=== PATIENT | female | born 1960 | race Caucasian/White ===

== ENCOUNTER → 2019-06-23 | Outpatient (CLI) | payer OTHER ==
--- NOTE | 2019-06-23 17:25 | Diagnostic Imaging Report ---
CLINICAL INDICATION: Patient with chronic right hip pain. No known injury. EXAM: X-ray of the pelvis AP view and X-ray of the right hip, AP and frog-leg views. COMPARISON: None. FINDINGS: There is no acute fracture or dislocation. There is mild spurring of the right proximal femoral head/neck junction region. There is moderate narrowing of the femoroacetabular joint space superiorly. There is spurring of the right acetabular roof. There is mild enthesopathy of the right greater trochanter. Left hip shows no significant abnormality. There is mild degenerative changes with sclerosis and subchondral cystic changes involving the symphysis pubis. Sacroiliac joints and visualized portions of the sacrum and remainder of the pelvis is unremarkable. IMPRESSION: 1: There is no acute fracture or dislocation. 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 Dictated by: Dictated on workstation # [id number]
== END ==
LOC: RAD 16:35
PROVIDERS: ATTEND Family Medicine
DX: M16.11 Unilateral primary osteoarthritis, right hip (principal)